=== PATIENT | male | born 1965 | race Caucasian/White ===

== ENCOUNTER 2022-09-18 06:19 | Inpatient (IN) | payer OTHER, SELFPAY ==
[2022-09-12 08:38] VITALS: BMI 29.6
[2022-09-18] VITALS (12 sets, daily range): BP systolic 129–142; BP diastolic 67–84; PULSE 73–101; RESP 12–19; TEMP 35.7–37.1; O2SAT 92–96; BMI 29.6
[2022-09-18] MEDS: LACTATED RINGERS 1,000 ML 42 ML IV ×2 (07:04→10:15)
--- NOTE | 2022-09-18 07:37 | PM.PREOP ---
Pre-operative Note COVID-19 Criteria for continued procedure: Expected advancement of disease process, Possibility delay results in more complex future surgery or treatment, Increased loss of function, Continuing or worsening of significant or severe pain, Deterioration of the patient's condition or overall health and Delay expected to result in less-positive ultimate med/surg outcome Interval Note History & Physical reviewed/Exam performed by Physician: Yes Changes to H&P: No
[2022-09-18] MEDS: SCOPOLAMINE 1 PATCH TOP (07:38)
[2022-09-18] MEDS: CEFAZOLIN 2 GM/100 ML PREMIX 100 ML IV ×2 (08:01→16:51)
--- NOTE | 2022-09-18 08:18 | SUR.OPER ---
Supine, head on gel donut. Arms padded with gel pads, tucked at sides, towel roll under shoulders. Safety belt at thigh. Legs uncrossed.
[2022-09-18] MEDS: BUPIVACAINE 0.25% W/ EPI (PF) 10 ML VIAL 30 ML INJ (08:44)
--- NOTE | 2022-09-18 11:05 | DI.RAD.S_ITS ---
PROCEDURE: XR CERVICAL SPINE 2V OR 3V INDICATIONS: C4-5, C5-6, C6-7 ACDF TECHNIQUE: 2 view(s) of the cervical spine were acquired. COMPARISON: None. FINDINGS: Fluoroscopic guidance utilized for ACDF C4 through C7. No hardware complication. IMPRESSION: Fluoroscopic guidance. Dictated by: Jerald Latham M.D. on 09/18/2022 at 11:42 Approved by: Jerald Latham M.D. on 09/18/2022 at 11:42
--- NOTE | 2022-09-18 11:05 | PM.OP.1 ---
Operative Date/Time/Diagnoses Date of procedure: 09/18/22 Time of procedure: 07:40 Pre-op diagnosis: 1. C4-5, C5-6, C6-7 spinal stenosis 2. C4-5, C5-6, C6-7 spondylosis with radiculopathy Post-op diagnosis: same Procedure & Clinicians Procedure: 1. C4-5 C5-6 C6-7 anterior cervical diskectomy and fusion 2. C4-5 C5-6 C6-7 anterior interbody cage placement 3. C4-5 C5-6 C6-7 anterior instrumentation with plate and screw placement in C4-C5-C6 and C7 vertebrae 4. Utilization of microsurgical technique and operating microscope Same procedure as scheduled: Yes Indications: Patient has been having chronic neck pain and worsening cervical radiculopathy. Patient failed multiple conservative management with worsening pain weakness and numbness in her upper extremity. Patient has been having difficulty performing activity of daily living. After discussing risks benefits of treatment options, patient elected proceed with surgery. Surgeon: Christiana Byrne Lead Java Programmer: Sweta Rdz Click Yes if Unassisted: No Anesthesia Type: General Operative Notes Closure Type: primary Specimen(s): none sent Prosthetic devices, grafts, tissues, transplants, or devices: Globus Extend Plate, Hedron C Cages Applied: catheter Estimated Blood Loss (mL): 5 Blood products transfused: none Procedure in detail: Patient was seen in the preoperative area. Risks and benefits of the surgery was discussed with the patient. Operative consent was obtained and placed in the chart. Patient was then taken to the operative room. Prophylactic antibiotic was given less than 0.5 hr prior to skin incision. General anesthesia was administered. Patient was placed into a supine position on her radiolucent table. Bilateral shoulders were taped down to allow proper C-arm imaging. Anterior cervical area was prepped and draped in a sterile fashion. Time-out was performed at this time. Using lateral C-arm imaging, the level between C4 and C7 was identified and marked on patient's neck. A oblique incision from midline towards medial border of sternocleidomastoid muscle was made. The platysma muscle was incised in line with skin incision. Metzenbaum scissor was used to develop the plane between the medial border of sternocleidomastoid and the strap muscles medially. The carotid sheath and its contents were identified and protected behind the hand-held retractor during the entire case. The plane between the carotid sheath and strap muscles was developed with Metzenbaum scissors. Dissection was made down to the level of the anterior cervical fascia. Longus colli muscle was incised on the anterior aspect of vertebral bodies bilaterally from C4-C7. Spinal needle was placed into the C4-5 disc space and confirmed with lateral C-arm imaging. Self-retaining retractors were then placed protecting the carotid sheath the sheath laterally and the esophagus medially while exposing the surgical field between C4-C7 vertebrae. Using microsurgical technique and operative microscope, anterior cervical diskectomy was performed at C4-5 C5-6 and C6-7 level. This was done by removing the disc material, removing the anterior and posterior osteophytes posterior longitudinal ligaments along with performing bilateral foraminotomies at all 3 levels. Patient was found to have severe central and foraminal stenosis at all 3 levels. Patient's stenosis was fully decompressed after decompression was completed. After the diskectomy was completed, 3 anterior interbody cages were obtained. The cages were packed with globus Trifecta bone grafting material. One cage each along with the bone grafting material was then packed into the interbody spaces from C4-C7 with one cage into each interbody level. Patient had large anterior osteophytes at C5-C6 and C7 vertebrae. Large osteophytes was removed using Leksell rongeur in order to place anterior cervical plate. After the cages were placed, the anterior cervical plate was stabilized to the C4-C7 vertebrae using 2 screws at each each level. Total 8 screws were placed. After confirming placement of the hardware with AP and lateral C-arm imaging, the screws were locked into the plate using the locking mechanism and torque limiting screwdriver. After the hardware was placed and confirmed with AP and lateral C-arm imaging, the wound was irrigated with sterile normal saline. Hemostasis was accomplished using bipolar cautery. Carotid sheath contents and the esophagus was inspected and visualized and identified to be well protected throughout the entire case prior to closure. Platysma muscle and the subcutaneous tissue was closed with 2-0 Vicryl. The skin was closed with 4-0 Monocryl and Steri-Strips. Patient tolerated the procedure well. Patient was transferred recovery room in stable condition. There were no complications. Complications: none Post-operative Condition: stable Disposition: PACU Plan for aftercare: Admit to inpatient hospital
[2022-09-18] MEDS: OXYCODONE IR 5 MG TABLET PO ×2 (14:00→21:22)
[2022-09-18] MEDS: ACETAMINOPHEN 325 MG TABLET 650 MG PO (14:01)
[2022-09-18] MEDS: ONDANSETRON 4 MG/2 ML INJ IV (14:01)
[2022-09-18] MEDS: LACTATED RINGERS 1,000 ML 125 ML IV ×2 (14:02→21:42)
[2022-09-18] MEDS: ATORVASTATIN 20 MG TABLET 40 MG PO (21:21)
[2022-09-18] MEDS: lisinopriL 10 MG TABLET PO (21:22)
[2022-09-18] MEDS: DOCUSATE 100 MG CAPSULE PO (21:24)
[2022-09-18] MEDS: SENNOSIDES 8.6 MG TABLET 17.2 MG PO (21:24)
[2022-09-19] MEDS: CEFAZOLIN 2 GM/100 ML PREMIX 100 ML IV (01:35)
[2022-09-19] MEDS: LACTATED RINGERS 1,000 ML 125 ML IV (06:17)
[2022-09-19 08:09] VITALS: BP 113/69; PULSE 66; RESP 16; TEMP 36.6; O2SAT 93
[2022-09-19] MEDS: DOCUSATE 100 MG CAPSULE PO (08:24)
--- NOTE | 2022-09-19 09:36 | P.DS_ITS ---
History of Present Illness History of Present Illness Date Patient Seen: 09/19/22 Time Patient Seen: 09:36 Chief complaint: Neck pain Narrative: Neck pain is mild. No shortness of breath or chest pain. No difficulty swallowing. Patient able to walk in the halls this morning without difficulty. Patient has assistance at home. Discharge Providers Provider Date of admission: 09/18/22 06:19 Discharge Date: 09/19/22 Primary care physician: Doctor Doug MD Consults: 09/18/22 13:32 Consult to Occupational Therapy Evaluate & Treat Comment: Physician Instructions: Evaluate and treat Consult to Physical Therapy Evaluate & Treat Comment: Physician Instructions: Evaluate and Treat Discharge provider: Kiran Pierce PA-C Summary Hospital Course Discharge Diagnosis: 1. C4-5, C5-6, C6-7 spinal stenosis 2. C4-5, C5-6, C6-7 spondylosis with radiculopathy Hospital Course: 1.? C4-5 C5-6 C6-7 anterior cervical diskectomy and fusion 2.? C4-5 C5-6 C6-7 anterior interbody cage placement 3.? C4-5 C5-6 C6-7 anterior instrumentation with plate and screw placement in C4-C5-C6 and C7 vertebrae 4.? Utilization of microsurgical technique and operating microscope Same procedure as scheduled: Yes Indications: Patient has been having chronic neck pain and worsening cervical radiculopathy. Patient failed multiple conservative management with worsening pain weakness and numbness in her upper extremity.? Patient has been having difficulty performing activity of daily living.? After discussing risks benefits of treatment options, patient elected proceed with surgery. Surgeon: Christiana Byrne Clutch Rebuilder: Sweta Rdz Click Yes if Unassisted: No Anesthesia Type: General Operative Notes Closure Type: primary Specimen(s): none sent Prosthetic devices, grafts, tissues, transplants, or devices: Globus Extend Plate, Hedron C Cages Applied: catheter Estimated Blood Loss (mL): 5 Blood products transfused: none Patient admitted to the hospital for the above-mentioned procedure. Patient consented to the same. Patient underwent cervical fusion on September 18, 2022. Patient back in his room recovering well as in stable condition. Discharge home today. Exam Vital Signs (past 8 hours): - 09/19/22 08:09 Temperature 97.8 F Pulse Rate 66 Respiratory Rate 16 Blood Pressure 113/69 Pulse Oximetry 93 Oxygen Flow Rate 0 Oxygen Delivery Method Room Air Oxygen Flow Rate 0 Narrative Exam Narrative: 56-year-old male resting comfortably in bedside chair in no apparent distress. Soft collar in place. Dressing clean, dry and intact. Neurovascular status is intact bilateral upper extremities. Const General: cooperative and comfortable Nutritional Appearance: average body habitus Orientation: alert Resp Effort & Inspection: normal respiratory effort and able to speak in complete sentences PFSH Medical History Anesthesia complication History of COVID-19 (08/27/21) HLD (hyperlipidemia) HTN (hypertension) Numbness and tingling Pre-diabetes Spinal stenosis, cervical region Spondylosis Surgical History Hx of laminectomy (1991) Hx of tonsillectomy Social History household members: spouse and family Smoking Status: Never smoker alcohol intake: current Discharge Assessment & Plan Assessment and Plan Assessment: Patient progressing as expected status post her effusion Plan of Treatment: Multimodal pain management Soft collar for comfort Limit bending, twisting, lifting Discharge home today in stable condition Discharge Plan Discharge Plan Patient Disposition: Home Discharge orders & Medications Prescriptions: New acetaminophen 325 mg Tablet 650 mg PO Q6H PRN (Reason: Fever/Mild Pain (1-3)) Qty: 60 0RF docusate sodium 100 mg Capsule 100 mg PO BID Qty: 10 0RF oxycodone 5 mg Tablet 5 mg PO Q3H PRN (Reason: Pain, Moderate (4-6)) Qty: 40 0RF Continued atorvastatin 40 mg Tablet 40 mg PO BEDTIME aspirin 81 mg Tablet,Delayed Release (Dr/Ec) 81 mg PO DAILY lisinopril 10 mg Tablet 10 mg PO BEDTIME niacin 500 mg Tablet 500 mg PO BEDTIME Discontinued ibuprofen [Advil] 200 mg Tablet 400 mg PO DAILY PRN (Reason: Pain) Follow up/Referrals: Christiana Byrne MD [Physician] - As previously scheduled (Follow up with Sweta Rdz PA-C, on 10/02/2022 @ 10:30 am at [facility] office in [place].) Miscellaneous,DoctorMD [Primary Care Provider] - Diet/Activity/Treatments Diet: Diet as Tolerated Diet comment: It is normal to have a sore throat and some swallowing difficulty. Activity: Soft collar for comfort; recommend wearing when you are sitting for long periods of time or up walking around. May take off to eat, shower, and sleep, although some people feel more comfortable wearing it while sleeping. No lifting more than 10 pounds. Cold/Heat Therapy: Heating pad to back of neck and between shoulder blades as needed for pain. Skin/Wound/Dressing Care Report to your healthcare provider any signs of infection, such as:: chills, fever, night sweats, unusual drainage and unusual redness Dressing: May shower. If dressing becomes wet inside, may remove, but leave steri-strips in place until follow up in office. Visit Report/Discharge Packet Instructions: DI for Prescription Opioid Use, DI for Anterior Cervical Discectomy and Fusion Stand Alone Forms: Patient Portal/API, Stroke Signs & Symptoms, Surgery Discharge Discharge Data Primary Care Provider: Miscellaneous,Doctor
--- NOTE | 2022-09-19 10:25 | PT.IIE ---
Current Diagnoses Spondylosis without myelopathy or radiculopathy, cervical region (09/18/22) Spinal stenosis, cervical region (09/18/22) Surgery Performed Operation Date: 09/18/22 07:45 Actual Procedures p C4-5, C5-6, C6-7 ACDF w. anterior instrumentation - Christiana Byrne MD Surgical History (Last Reviewed 09/19/22 @ 09:38 by Kiran Pierce PA-C) Hx of laminectomy (1991) Hx of tonsillectomy Medical History (Last Reviewed 09/19/22 @ 09:38 by Kiran Pierce PA-C) Anesthesia complication History of COVID-19 (08/27/21) HLD (hyperlipidemia) HTN (hypertension) Numbness and tingling Pre-diabetes Spinal stenosis, cervical region Spondylosis Physical Therapy Inpatient Evaluation/Re-Eval M1 PT/OT-IP Prior Functional Status Start: 09/19/22 14:09 Freq: NEEDED Status: Active Protocol: Document 09/19/22 10:25 AB (Rec: 09/19/22 14:20 AB [id number]) Medical Review Prior Functional Status Medical History Reviewed Yes Communication able to make needs known Mobility and Gait pt stated that he is independent with all mobilities and ambulation without AD Social History Household Members spouse,family Living Arrangements House Number of Floors (Floors) One Floor Number of Stairs To Enter/Railing? 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 Additional Social History Comment pt works for [employer] M2 PT-IP Current Condition Start: 09/19/22 14:09 Freq: NEEDED Status: Active Protocol: Document 09/19/22 10:25 AB (Rec: 09/19/22 14:20 AB [id number]) Physical Therapy Current Condition Current Condition Evaluation Date 09/19/22 Treatment Diagnosis C4-5,5-6,6-7 ACDF; difficulty in walking Onset Date 09/18/22 M3 PT-IP Subjective Start: 09/19/22 14:09 Freq: NEEDED Status: Active Protocol: Document 09/19/22 10:25 AB (Rec: 09/19/22 14:20 AB [id number]) Subjective Physical Therapy Visit Type Type Initial Evaluation Visit Start Time 10:25 Visit Stop Time 10:41 Total Visit Minutes 16 Number of EXTERNAL RELATIONS DIRECTOR Visits 0 Physical Therapy Visit Comments Patient Comments agreeable to do PT Therapy Pain Assessment Pain When Pain Assessed At Rest Pain Present Pain Present Pain Reported Location Neck Intensity 3 Scale Used Numeric (0 - 10) Pain Management Techniques Distraction,Modification of Treatment,Re-positioning, Timing of Activity with Medications M4 PT-IP Mobility and Gait Start: 09/19/22 14:09 Freq: NEEDED Status: Active Protocol: Document 09/19/22 10:25 AB (Rec: 09/19/22 14:20 AB [id number]) PT-Bed Mobility Assessment Rolling Type of Rolling Log Rolling Level of Assist Independent Supine to Sit Supine to Sit Independent PT-Transfer Assessment Sit to and From Stand Sit to and from Stand Independent Equipment Transfer Assistive Device None Orthotic/Prosthetic Devices or Brace: Yes Transfers Transfer Destination Bed,Chair Transfer Technique ambulated Transfer Ability Level of Assist Independent Comments Mobility Comments pt sitting on the chair. spouse in room. educated pt and spouse regarding cervical precautions and log roll bed mobility. completed sit to stand independent and ambulated in room without AD independent. pt sat on EOB. educated pt and spouse regarding cervical collar management. pt completed log roll sit<> supine mod I. pt agreed to do stairs. ambulated in the hallway without AD independent. pt without LOB. completed up/ down platform step without use of AD SBA. pt ambulated back to his room and sat on the chair. call light and table placed within reach. pt and spouse without further concerns. Gait Assessment Gait Gait Assistance Required: Independent Distance (Feet) 150 Able to Maintain Weight Bearing Status Yes During Gait Assistive Devices Assistive Device None Orthotic/Prosthetic Devices or Brace: Yes Gait Deviations General Gait Pattern Wide Based Gait Factors Limiting Gait Function Factors Limiting Gait Function Decreased Activity Tolerance, Limited Range of Motion,Pain, Poor Safety Awareness Stair Climbing Assessment Evaluation Level of Assist On Stairs Standby Assistance Devices Stair Climbing Assistive Devices None Technique/Endurance Stair Climbing Direction Ascend and Descend Stair Climbing Technique Step to Step Number of Steps Climbed 1 Query Text: Stair Climbing Set # Repetitions (reps) 1 PT-Balance Assessment Sitting Balance and Reactions Static Sitting Balance Ability Normal Dynamic Sitting Balance Ability Normal Standing Balance and Reactions Static Standing Balance Ability Good Dynamic Standing Balance Ability Good Device Used without AD M5 PT-IP Objective Assessments Start: 09/19/22 14:09 Freq: NEEDED Status: Active Protocol: Document 09/19/22 10:25 AB (Rec: 09/19/22 14:20 AB [id number]) Orientation Orientation/Cognition Level of Alertness Alert Orientation Name,Place,Situation Safety Awareness Understands Safety Issues Memory Description No Deficits Noted Gross Range of Motion Lower Extremity ROM Assessment Within Functional Limits Strength Lower Extremity Strength Assessment Within Functional Limits Muscle Tone Muscle Tone WNL Yes M6 PT-IP Treatment Start: 09/19/22 14:09 Freq: NEEDED Status: Active Protocol: Document 09/19/22 10:25 AB (Rec: 09/19/22 14:20 AB [id number]) Physical Therapy Treatment Education Education Provided Precautions,Weight Bearing Status,Post-Op Packet,Safety M7 PT-IP Assessment and Plan Start: 09/19/22 14:09 Freq: NEEDED Status: Active Protocol: Document 09/19/22 10:25 AB (Rec: 09/19/22 14:20 AB [email or web address]) PT Summary Assessment and Plan Potential Rehabilitation Potential Good Status of Condition at Evaluation Stable Summary Impairments Pain,ROM,Bed Mobility, Transfers,Gait,Activity Tolerance Assessment Summary pt s/p C4-5, C5-6 ACDF POD1. pt mod I with bed mobility, transfers and ambulation. Able to complete up/down platform step SBA for safety. pt plans to go home and spouse to assist as needed. pt may go home when medically stable. Pt without further PT needs at this time. Frequency of Treatment Frequency Of Treatment Discharge Treatment Plan Physical Therapy Treatment Plan Bed Mobility Training,Transfer Training,Gait Training, Therapeutic Exercise,Balance Retraining,Post Op Education, Discharge Planning,Hot or Cold Pack,Neuromuscular Re-ed, Coordination Retraining,Manual Therapy Recommendations To Nursing Amount of Assist Needed Independent Discharge Recommendations PT Discharge Recommendations Home with Assistance Transportation Needs at Discharge Private Vehicle
--- NOTE | 2022-09-19 11:02 | CM.DANOTE ---
DCP Assessment Note: Patient is a 56yo male here following a planned neck surgery with Dr. Byrne on 09/18/22. [facility] PCP: Cathy Maguire CELL BIOLOGIST reviewed EMR. CELL BIOLOGIST entered room and introduced self and role. Patient was sitting up in chair and appeared A/Ox4. Patient was accompanied by spouse Rosemary ([phone]). Patient reported he's feeling really well and walking laps around the hospital. Patient has supportive family at home (, 25yo disabled son, and MIL) to assist him through recovery. Patient reports he has some stairs at home but he feels like he can do them. Patient is independent at baseline and drives. Patient requested to leave before 1300 due to 's ability to drive him home. PT/OT evals are pending. CELL BIOLOGIST told PT/OT staff of patient's request to leave by 1300 today. Plan: pending PT/OT recommendations, patient will d/c home with family support in POV. CM team will continue to follow as needed. NOLAN Martinez Discharge Planning/Care Management CM Discharge Assessment Start: 09/19/22 10:53 Freq: Status: Active Protocol: Document 09/19/22 11:00 (Rec: 09/19/22 11:02 [id number]) Discharge Planning Assessment Assigned Health Editor NOLAN Avendaño DPOA/Assigned Designee Name Rosemary (spouse) Contact Information [phone] Advance Directives? No History Provided By Patient,Family Member,Medical Record Prior Living Arrangements House Household Members spouse,family Type of transporation used prior to Drives own vehicle admit Independent with ADL's Yes Is patient alert and oriented? Yes Barriers to Discharge No Discharge Plan Home Transportation Arrangement spouse in POV Whiteboard Updated in Patient Room with Yes name and ext. # of Health Editor Review Status In Process Next Review Type Continued Stay Review Pre-Anesthesia Assessment Start: 09/12/22 08:38 Freq: Status: Complete Protocol: Document 09/12/22 08:38 CAB (Rec: 09/12/22 09:26 CAB [id number]) Pre-Anesthesia Assessment Preferred Name Yimi Patient Information Reviewed Via Phone Assessment Assessment Completed With Patient Diagnostic Results BMP/CMP,CBC Comment Outside labs scanned Primary Care Provider Stevie Maguire Seen Specialist in Last 12 Months Yes Specialist Seen Orthopedist Primary Language Amharic Network Services Project Manager Required No Height 172.72 cm Weight 88.451 kg Body Mass Index (BMI) 29.6 Hearing Ability Normal Visual Assist Glasses Dentition Type Teeth, Natural Present Barriers to Learning None Hx Anesthesia Reactions Yes: PONV Hx Family Anesthesia Reaction No Hx Malignant Hyperthermia No Hx Blood Transfusions No Anesthesia Review Requested No Magazine Editor No alcohol intake current alcohol intake frequency 0-2 drinks per day Smoking Status Never smoker Substance Use Type does not use Pain Present Denied Pain Musculoskeletal Symptoms Limited Range of Motion, Numbness,Radiating Pain into Limb,Tingling History of Falling (Recent or History of No ) Comment Denies neck pain Patient is completely paralyzed or No completely immobile Mental Status Oriented to own ability Is patient on oxygen? No Does patient have COTO/SOB No Hx Sleep Apnea No Currently Taking a Beta Zeina No Can You Climb a Flight of Stairs Without Yes SOB Hx Chest Pain No Hx SOB No Hx Syncope or Dizziness No Anti-Coagulant Therapy No Has a Media Senior Recruiter No Cardiac Testing No Hx Pacemaker/ICD No Pacemaker Rep Required? No Diet Type At Home Regular Dysphagia No Gastrointestinal Symptoms None Chronic UTI No Urinary Catheter Present No Hx Urinary Self Catheterization No Diabetes No: Pre-diabetes Hx Drug Resistant Organism No Presence of External or Internal Medical No Devices Have you had any close contact with No someone diagnosed with COVID-19? Received a COVID vaccine? Yes Received all doses? No Marital Status Lives With spouse,children Current Living Arrangements House Number of Floors (Floors) Two Floors Number of Stairs To Enter/Railing? None Support System Family,Spouse Does the Patient Have Assistance After Yes Surgery Patient Discharge Plan Description Return Home Comment Pt advised 1 night length of stay per surgeon Feels Safe in Current Environment Yes Been Physically Hurt or Threatened By a No Person in Current Environment Do you have thoughts of harming yourself None or others? Are you currently considering suicide? No Do you have a plan to hurt yourself or No Plan others? Do You Have Any Spiritual Beliefs That No May Affect Your HC Choices? Do You Have Any Cultural Practices That No May Affect Your HC Choices? Who Can We Speak to About Patient's Care Family, friends Identifying Code for Release of Patient Declines to issue Information Health Care Proxy/Next of Kin Rosemary () Health Care Proxy Emergency Contact Name Rosemary () Emergency Contact Advance Directives? No Power of Sawdust Machine Operator No PAC Instructions Medications to take/avoid, Nasal antibiotic,No ETOH/ petroleum product on skin DOS, NPO,Post-op transportation,Pre -surgical wash,Sensory aids, Sturdy shoes/comfortable clothes,Do not bring valuables and remove jewelry
== END 2022-09-19 11:30 | disposition home or self-care (01) | DRG 473 ==
PROVIDERS: Admitting Provider Orthopaedic Surgery Orthopaedic Surgery of the Spine; Referring Provider Orthopaedic Surgery Orthopaedic Surgery of the Spine; Visit Provider Orthopaedic Surgery Orthopaedic Surgery of the Spine
PROC: 0RG20A0 Fusion of 2 or more Cervical Vertebral Joints with Interbody Fusion Device, Anterior Approach, Anterior Column, Open Approach (ICD-10-PCS; principal; 2022-09-18 07:45)
DX: M48.02 Spinal stenosis, cervical region (principal); M47.22 Other spondylosis with radiculopathy, cervical region; E78.5 Hyperlipidemia, unspecified; I10 Essential (primary) hypertension
CPT/HCPCS: 72040; 76000; 97161; 97165; J0330; J0690; J1100; J1170; J2405; J2704; J3010